=== PATIENT | female | born 1975 | race Two or more races ===

== ENCOUNTER 2020-08-09 05:30 | Day surgery (SDC) | payer OTHER ==
[~2020-08-09] VITALS: Ht 157.5 cm; Wt 61.2 kg
== END 2020-08-09 10:55 | disposition home or self-care (01) ==
LOC: CIR.AMB 05:30
PROVIDERS: ATTEND Obstetrics & Gynecology Gynecologic Oncology
DX: N80.0 Endometriosis of uterus (principal); N73.6 Female pelvic peritoneal adhesions (postinfective); Z20.822 Contact with and (suspected) exposure to COVID-19